=== PATIENT | male | born 1950 ===

== ENCOUNTER → 2023-10-01 11:28 | Outpatient (REF) | payer OTHER, MEDICARE, SELFPAY ==
[2023-10-01 11:51] LABS: % Basophils 0.7 % (0-2); % Eosinophils 6.4 % (0-6); % Immature Granulocytes 0.4 % (0-0.5); % Lymphocytes 19.9 % (20.5-51.1); % Monocytes 17.4 % (1.7-9.3); % Neutrophils 55.2 % (42.2-75.2); Absolute Basophils 0.1 10^3/uL (0-0.2); Absolute Eosinophils 0.5 10^3/uL (0-0.7); Absolute Lymphocytes 1.4 10^3/uL (1.2-3.4); Absolute Monocytes 1.2 10^3/uL (0.1-0.6); Absolute Neutrophils 3.9 10^3/uL (1.4-6.5); Hemoglobin 7.9 g/dL (13.0-18.0); Mean Corp Hgb Conc. 32.9 g/dL (33.0-37.0); Mean Corpuscular Hgb 26.5 pg (27.0-31.0); Mean Corpuscular Volume 80.5 fL (80.0-94.0); Mean Platelet Volume 9.3 fL (7.4-10.4); Nucleated Red Blood Cells % 0 % (-); Platelet Count 433 10^3/uL (130-400); Red Blood Cell Count 2.98 10^6/uL (4.70-6.10); Red Cell Dist. Width 23.6 % (11.5-14.5); White Blood Cell Count 7.1 10^3/uL (4.8-10.8)
[2023-10-01 12:00] LABS: Blood Urea Nitrogen 19 mg/dl (9-20); Carbon Dioxide 23 mmol/L (22-30); Chloride 109 mmol/L (98-107); Glucose 76 mg/dl (70-99); Magnesium 2.1 mg/dl (1.6-2.3); Phosphorus 4.5 mg/dl (2.5-4.5); Sodium 136 mmol/L (135-145); eGFR > 60.00
== END ==
LOC: OLABP 11:28
PROVIDERS: ATTENDING PHYSICIAN Student in an Organized Health Care Education/Training Program
DX: I73.9 Peripheral vascular disease, unspecified (principal); J44.9 Chronic obstructive pulmonary disease, unspecified; I10 Essential (primary) hypertension; I48.91 Unspecified atrial fibrillation
CPT/HCPCS: 36415; 80048; 83735; 84100; 85025

== ENCOUNTER → 2023-10-03 12:26 | Outpatient (REF) | payer OTHER, MEDICARE, SELFPAY ==
[2023-10-03 13:25] LABS: % Basophils 0.5 % (0-2); % Eosinophils 6.1 % (0-6); % Immature Granulocytes 0.5 % (0-0.5); % Lymphocytes 16.9 % (20.5-51.1); % Monocytes 13.9 % (1.7-9.3); % Neutrophils 62.1 % (42.2-75.2); Absolute Eosinophils 0.5 10^3/uL (0-0.7); Absolute Lymphocytes 1.4 10^3/uL (1.2-3.4); Absolute Monocytes 1.1 10^3/uL (0.1-0.6); Absolute Neutrophils 5.1 10^3/uL (1.4-6.5); Hematocrit 23.5 % (39.0-52.0); Hemoglobin 7.8 g/dL (13.0-18.0); Mean Corp Hgb Conc. 33.2 g/dL (33.0-37.0); Mean Corpuscular Hgb 26.7 pg (27.0-31.0); Mean Corpuscular Volume 80.5 fL (80.0-94.0); Mean Platelet Volume 9.3 fL (7.4-10.4); Nucleated Red Blood Cells % 0 % (-); Platelet Count 413 10^3/uL (130-400); Red Blood Cell Count 2.92 10^6/uL (4.70-6.10); Red Cell Dist. Width 23.3 % (11.5-14.5); White Blood Cell Count 8.2 10^3/uL (4.8-10.8)
[2023-10-03 14:17] LABS: Anisocytosis 1+; Normal RBC Morphology No
[2023-10-03 14:18] LABS: Hypochromasia 1+; Microcytosis Slight
== END ==
LOC: OLABP 12:26
PROVIDERS: ATTENDING PHYSICIAN Student in an Organized Health Care Education/Training Program
DX: J44.9 Chronic obstructive pulmonary disease, unspecified (principal); I10 Essential (primary) hypertension; I48.91 Unspecified atrial fibrillation; I73.9 Peripheral vascular disease, unspecified
CPT/HCPCS: 36415; 85025

== ENCOUNTER → 2023-10-08 11:49 | Outpatient (REF) | payer OTHER, MEDICARE, SELFPAY ==
[2023-10-08 12:04] LABS: % Basophils 0.7 % (0-2); % Eosinophils 2.6 % (0-6); % Immature Granulocytes 0.2 % (0-0.5); % Lymphocytes 13.2 % (20.5-51.1); % Monocytes 11.7 % (1.7-9.3); % Neutrophils 71.6 % (42.2-75.2); Absolute Basophils 0.1 10^3/uL (0-0.2); Absolute Eosinophils 0.2 10^3/uL (0-0.7); Absolute Lymphocytes 1.2 10^3/uL (1.2-3.4); Absolute Neutrophils 6.3 10^3/uL (1.4-6.5); Hematocrit 27.7 % (39.0-52.0); Hemoglobin 8.8 g/dL (13.0-18.0); Mean Corp Hgb Conc. 31.8 g/dL (33.0-37.0); Nucleated Red Blood Cells % 0 % (-); Platelet Count 337 10^3/uL (130-400); Red Blood Cell Count 3.26 10^6/uL (4.70-6.10); Red Cell Dist. Width 23.5 % (11.5-14.5); White Blood Cell Count 8.7 10^3/uL (4.8-10.8)
[2023-10-08 12:32] LABS: Blood Urea Nitrogen 22 mg/dl (9-20); Calcium 8.1 mg/dl (8.4-10.2); Carbon Dioxide 24 mmol/L (22-30); Chloride 106 mmol/L (98-107); Glucose 76 mg/dl (70-99); Sodium 134 mmol/L (135-145); eGFR > 60.00
[2023-10-08 15:23] LABS: Normal RBC Morphology No
== END ==
LOC: OLABP 11:49
PROVIDERS: ATTENDING PHYSICIAN Student in an Organized Health Care Education/Training Program
DX: J44.9 Chronic obstructive pulmonary disease, unspecified (principal); I10 Essential (primary) hypertension; I48.91 Unspecified atrial fibrillation; I73.9 Peripheral vascular disease, unspecified
CPT/HCPCS: 36415; 80048; 85025